=== PATIENT | male | born 1985 | race Caucasian/White ===

== ENCOUNTER 2021-03-11 16:12 | Emergency (ER) | payer OTHER ==
[~2021-03-11] VITALS: Ht 175.3 cm; Wt 87.3 kg
[2021-03-11 17:20] VITALS: TEMP 98.4
[2021-03-11 18:13] LABS: BASO % 0.4 % (0.0-2.0); EOS % 0.4 % (0.0-4.0); GRAN # 7.2 K/mm3 (1.4-6.5); HEMATOCRIT 39.5 % (42.0-52.0); LYMPH # 1.6 K/mm3 (1.2-3.4); LYMPH % 17.3 % (20.0-51.0); MEAN CELL VOLUME 85 fl (80.0-100.0); MEAN CORPUSCULAR HEMOGLOBIN 28 pg (27-31); MEAN CORPUSCULAR HGB CONC 33 g/dl (33.0-37.0); MONO # 0.6 K/mm3 (0.1-0.6); MONO % 5.8 % (1.7-9.3); PLATELET COUNT 323 K/mm3 (130-400); RED BLOOD COUNT 4.67 M/mm3 (4.20-5.60)
[2021-03-11 18:14] LABS: COLLECTION METHOD CLEAN CATCH
[2021-03-11 18:20] LABS: MUCOUS Present (NOT PRESENT); PH 6 (5-8); SQUAMOUS EPITHELIAL None Seen /hpf (0-10); URINE APPEARANCE Clear (CLEAR/HAZY); URINE BACTERIA None Seen /hpf (NONE SEEN); URINE BILIRUBIN Negative (NEGATIVE); URINE BLOOD Negative (NEGATIVE); URINE COLOR Yellow (YELLOW); URINE GLUCOSE Negative (NEGATIVE); URINE KETONE Trace (NEGATIVE); URINE LEUKOCYTE ESTERASE Negative (NEGATIVE); URINE NITRATE Negative (NEGATIVE); URINE PROTEIN(semi-quant) Negative (NEGATIVE); URINE RBC 0-2 /hpf (0-2); URINE UROBILINOGEN Negative (NEGATIVE)
[2021-03-11 18:34] LABS: ALANINE AMINOTRANSFERASE 10 U/L (0-55); ALBUMIN 4.3 gm/dL (3.5-5.0); ALKALINE PHOSPHATASE 102 U/L (40-150); ANION GAP 12 mmol/L (7-16); AST,SGOT 16 U/L (5-34); BILIRUBIN,TOTAL 0.3 mg/dL (0.2-1.2); BLOOD UREA NITROGEN 7 mg/dL (9-21); C-REACTIVE PROTEIN 1.06 mg/dL (0.00-0.50); CALCIUM 9.4 mg/dL (8.4-10.2); CARBON DIOXIDE 22 mmol/L (22-29); CHLORIDE 104 mmol/L (98-107); CREATININE, serum 0.87 mg/dL (0.72-1.25); GLUCOSE 99 mg/dL (70-99); LIPASE < 10 U/L (8-78); POTASSIUM 3.8 mmol/L (3.5-4.5); SODIUM 138 mmol/L (136-145); TOTAL PROTEIN 8.4 gm/dL (6.2-8.1)
[2021-03-11 20:30] VITALS: BP 137/89; PULSE 98
== END 2021-03-11 20:30 | disposition home or self-care (01) ==
LOC: COL.ER 16:12
PROVIDERS: Nurse Practitioner Primary Care
DX: R10.11 Right upper quadrant pain (principal)
CPT/HCPCS: J1885; J2405; J7030; Q9967

== ENCOUNTER 2021-03-22 15:34 | Emergency (ER) | payer OTHER ==
[~2021-03-22] VITALS: Ht 175.3 cm; Wt 80.5 kg
[2021-03-22 15:36] VITALS: TEMP 97.9
[2021-03-22 16:05] LABS: BASO # 0.1 K/mm3 (0.0-0.2); BASO % 0.6 % (0.0-2.0); EOS # 0.2 K/mm3 (0.0-0.7); EOS % 1.8 % (0.0-4.0); GRAN # 5.3 K/mm3 (1.4-6.5); GRAN % 63.1 % (42.2-75.2); HEMATOCRIT 38.4 % (42.0-52.0); HEMOGLOBIN 12.6 g/dl (13.5-18.0); LYMPH # 2.2 K/mm3 (1.2-3.4); LYMPH % 26.7 % (20.0-51.0); MEAN CELL VOLUME 83 fl (80.0-100.0); MEAN CORPUSCULAR HEMOGLOBIN 27 pg (27-31); MEAN CORPUSCULAR HGB CONC 33 g/dl (33.0-37.0); MEAN PLATELET VOLUME 9.9 fl (7.4-10.4); MONO # 0.6 K/mm3 (0.1-0.6); MONO % 7.4 % (1.7-9.3); PLATELET COUNT 331 K/mm3 (130-400); RED BLOOD COUNT 4.61 M/mm3 (4.20-5.60); REDCELL DISTRIBUTION WIDTH-CV 12.5 % (11.5-14.5)
[2021-03-22 16:22] LABS: ALANINE AMINOTRANSFERASE 15 U/L (0-55); ALBUMIN 4.2 gm/dL (3.5-5.0); ALKALINE PHOSPHATASE 91 U/L (40-150); ANION GAP 9 mmol/L (7-16); AST,SGOT 18 U/L (5-34); BILIRUBIN,TOTAL 0.2 mg/dL (0.2-1.2); BLOOD UREA NITROGEN 9 mg/dL (9-21); CALCIUM 9.1 mg/dL (8.4-10.2); CARBON DIOXIDE 23 mmol/L (22-29); CHLORIDE 107 mmol/L (98-107); CREATININE, serum 0.86 mg/dL (0.72-1.25); GLUCOSE 91 mg/dL (70-99); SODIUM 139 mmol/L (136-145)
[2021-03-22 16:30] LABS: TROPONIN-I < 0.010 ng/mL (0.00-0.033)
[2021-03-22 16:58] VITALS: BP 141/100; PULSE 75
== END 2021-03-22 17:13 | disposition home or self-care (01) ==
LOC: COL.ER 15:34
PROVIDERS: Emergency Medicine
DX: R07.89 Other chest pain (principal); Z87.891 Personal history of nicotine dependence

== ENCOUNTER 2021-04-09 18:33 | Emergency (ER) | payer OTHER ==
[2021-04-09 18:54] VITALS: BP 129/91; PULSE 69; TEMP 98.2
[2021-04-09 19:27] LABS: BASO % 0.3 % (0.0-2.0); EOS # 0.1 K/mm3 (0.0-0.7); EOS % 0.4 % (0.0-4.0); GRAN # 12.5 K/mm3 (1.4-6.5); GRAN % 86.8 % (42.2-75.2); HEMATOCRIT 38.5 % (42.0-52.0); HEMOGLOBIN 12.4 g/dl (13.5-18.0); LYMPH # 1.1 K/mm3 (1.2-3.4); LYMPH % 7.9 % (20.0-51.0); MEAN CELL VOLUME 84 fl (80.0-100.0); MEAN CORPUSCULAR HEMOGLOBIN 27 pg (27-31); MEAN CORPUSCULAR HGB CONC 32 g/dl (33.0-37.0); MEAN PLATELET VOLUME 9.8 fl (7.4-10.4); MONO # 0.6 K/mm3 (0.1-0.6); MONO % 4.2 % (1.7-9.3); PLATELET COUNT 277 K/mm3 (130-400); RED BLOOD COUNT 4.59 M/mm3 (4.20-5.60); REDCELL DISTRIBUTION WIDTH-CV 12.5 % (11.5-14.5)
[2021-04-09 19:41] LABS: ALANINE AMINOTRANSFERASE 15 U/L (0-55); ALKALINE PHOSPHATASE 83 U/L (40-150); ANION GAP 8 mmol/L (7-16); AST,SGOT 16 U/L (5-34); BILIRUBIN,TOTAL 0.2 mg/dL (0.2-1.2); BLOOD UREA NITROGEN 12 mg/dL (9-21); C-REACTIVE PROTEIN 0.82 mg/dL (0.00-0.50); CALCIUM 8.8 mg/dL (8.4-10.2); CARBON DIOXIDE 25 mmol/L (22-29); CHLORIDE 100 mmol/L (98-107); GLUCOSE 101 mg/dL (70-99); POTASSIUM 3.9 mmol/L (3.5-4.5); SODIUM 133 mmol/L (136-145); TOTAL PROTEIN 7.3 gm/dL (6.2-8.1)
[2021-04-09 19:42] LABS: LIPASE < 4 U/L (8-78)
[2021-04-09 19:49] LABS: TROPONIN-I < 0.010 ng/mL (0.00-0.033)
== END 2021-04-09 21:28 | disposition home or self-care (01) ==
LOC: COL.ER 18:33
PROVIDERS: Nurse Practitioner
DX: R10.13 Epigastric pain (principal); R07.89 Other chest pain; D72.829 Elevated white blood cell count, unspecified; R79.82 Elevated C-reactive protein (CRP); Z87.891 Personal history of nicotine dependence
CPT/HCPCS: Q9967

== ENCOUNTER → 2021-04-18 | Outpatient (CLI) | payer OTHER | LOC: COL.RAD 09:29 | DX: R10.11 Right upper quadrant pain (principal) | CPT/HCPCS: A9537; J2805 ==

== ENCOUNTER 2021-09-28 16:29 | Emergency (ER) | payer SELFPAY ==
[~2021-09-28] VITALS: Ht 175.3 cm; Wt 72.7 kg
[2021-09-28 17:14] VITALS: TEMP 98.8
[2021-09-28 17:56] LABS: BASO % 0.5 % (0.0-2.0); EOS # 0.1 K/mm3 (0.0-0.7); GRAN # 3.1 K/mm3 (1.4-6.5); GRAN % 54.1 % (42.2-75.2); HEMATOCRIT 40.2 % (42.0-52.0); HEMOGLOBIN 13.1 g/dl (13.5-18.0); LYMPH # 1.9 K/mm3 (1.2-3.4); MEAN CELL VOLUME 83 fl (80.0-100.0); MEAN CORPUSCULAR HEMOGLOBIN 27 pg (27-31); MEAN CORPUSCULAR HGB CONC 33 g/dl (33.0-37.0); MEAN PLATELET VOLUME 9.4 fl (7.4-10.4); MONO # 0.5 K/mm3 (0.1-0.6); MONO % 9.2 % (1.7-9.3); PLATELET COUNT 244 K/mm3 (130-400); RED BLOOD COUNT 4.87 M/mm3 (4.20-5.60); REDCELL DISTRIBUTION WIDTH-CV 13.3 % (11.5-14.5)
[2021-09-28 18:16] LABS: ALANINE AMINOTRANSFERASE 25 U/L (0-55); ALKALINE PHOSPHATASE 103 U/L (40-150); ANION GAP 12 mmol/L (7-16); AST,SGOT 17 U/L (5-34); BILIRUBIN,TOTAL 0.4 mg/dL (0.2-1.2); BLOOD UREA NITROGEN 13 mg/dL (9-21); CARBON DIOXIDE 23 mmol/L (22-29); CHLORIDE 102 mmol/L (98-107); CREATINE KINASE 163 U/L (30-200); CREATININE, serum 0.73 mg/dL (0.72-1.25); GLUCOSE 108 mg/dL (70-99); LIPASE 4 U/L (8-78); SODIUM 137 mmol/L (136-145); TOTAL PROTEIN 7.7 gm/dL (6.2-8.1)
[2021-09-28 18:37] LABS: THYROID STIMULATING HORMONE 1.046 uIU/mL (0.350-4.940)
[2021-09-28 18:42] LABS: TROPONIN-I < 0.010 ng/mL (0.00-0.033)
[2021-09-28 20:51] VITALS: BP 133/99; PULSE 87
== END 2021-09-28 20:53 | disposition home or self-care (01) ==
LOC: COL.ER 16:29
PROVIDERS: Emergency Medicine
DX: R07.89 Other chest pain (principal); R00.2 Palpitations; R10.11 Right upper quadrant pain; F17.290 Nicotine dependence, other tobacco product, uncomplicated
CPT/HCPCS: J7030; Q9967